=== PATIENT | female | born 1960 | race Caucasian/White ===

== ENCOUNTER 2019-02-07 19:42 | Emergency (ER) | payer OTHER ==
[~2019-02-07] VITALS: Ht 160 cm; Wt 35.8 kg
[2019-02-07 19:52] VITALS: BP 112/60; Ht 160 cm; Wt 35.8 kg
== END 2019-02-07 22:00 | disposition left against medical advice (07) ==
LOC: ED 19:42
DX: Z53.21 Procedure and treatment not carried out due to patient leaving prior to being seen by health care provider (principal)